=== PATIENT | female | born 1995 | race Caucasian/White ===

== ENCOUNTER 2019-07-11 14:54 | Outpatient (CLI) | payer OTHER ==
--- NOTE | 2019-07-11 15:34 | RAD ---
CERVICAL SPINE 3 VIEWS: Date: 07/11/2019 HISTORY: Neck pain. FINDINGS/IMPRESSION: There is loss of cervical lordosis with mild reversal. No fracture, subluxation, or bony destruction is seen. The prevertebral soft tissues are normal. POS: OFF
== END 2019-07-11 14:55 | disposition home or self-care (01) ==
LOC: RAD-FRANK 14:54
PROVIDERS: ATTEND Internal Medicine
DX: M54.2 Cervicalgia (principal)
CPT/HCPCS: 72040

== ENCOUNTER 2019-09-23 10:23 | Outpatient (CLI) | payer OTHER ==
--- NOTE | 2019-09-23 11:26 | MRI ---
MRI LUMBAR SPINE NONCONTRAST: DATE: 09/23/2019 HISTORY: 24-year-old female with lumbar radiculopathy M 54.16 COMPARISON: None FINDINGS: 5 lumbar-type vertebrae. Vertebral body heights are maintained. Conus medullaris terminates at L1-2. At L4-5 there is disc desiccation, mild discs space narrowing, mild disc bulge, and a superimposed small focal central and bilateral paracentral disc protrusion which indents the ventral aspect of the rachelle sac, abutting bilateral L5 nerve roots. No high-grade central spinal canal stenosis. Or high-grade neural foraminal stenosis at that level. All of the other levels are normal. 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 Otherwise normal bone marrow signal. No high-grade facet DJD. Perivertebral spaces are normal. Alignment is normal. IMPRESSION: 1. Mild degenerative disc disease at L4-5 with mild disc bulge and small central disc herniation. 2. The rest of the levels are normal.
== END 2019-09-23 10:24 | disposition home or self-care (01) ==
LOC: TBSIIMAG 10:23
PROVIDERS: ATTEND Neurological Surgery
DX: M51.16 Intervertebral disc disorders with radiculopathy, lumbar region (principal)
CPT/HCPCS: 72148

== ENCOUNTER 2020-02-14 19:18 | Emergency (ER) | payer OTHER ==
[2020-02-14] MEDS ORDERED: Lorazepam 1 MG TAB ONE (20:04)
--- NOTE | 2020-02-14 20:44 | RAD ---
EXAM: Chest PA and lateral: HISTORY: Dyspnea COMPARISON: None FINDINGS: Heart: Normal cardiac silhouette Aorta: Unremarkable Pulmonary vessels: Normal Costophrenic angles: Costophrenic angles are clear. Lungs: No consolidation or masses. Pneumothorax: No pneumothorax Osseous structures: No osseous abnormalities IMPRESSION: No acute cardiopulmonary process.
--- NOTE | 2020-02-25 10:55 | EKG ---
Test Reason : Blood Pressure : / mmHG Vent. Rate : 083 BPM Atrial Rate : 083 BPM P-R Int : 120 ms QRS Dur : 086 ms QT Int : 398 ms P-R-T Axes : 037 018 006 degrees QTc Int : 467 ms Normal sinus rhythm with sinus arrhythmia Normal ECG Confirmed by PÉREZ MITTAL DO ([id number]), copy editor SILVERIO FARFAN ([id number] on 02/25/2020 10:55:04 AM Referred By: Confirmed By:PÉREZ MITTAL DO
== END 2020-02-14 21:12 | disposition home or self-care (01) ==
LOC: ERS 19:18
DX: R00.0 Tachycardia, unspecified (principal); R06.00 Dyspnea, unspecified; F41.9 Anxiety disorder, unspecified; F17.210 Nicotine dependence, cigarettes, uncomplicated; Z79.899 Other long term (current) drug therapy
CPT/HCPCS: 71046; 93005

== ENCOUNTER 2021-01-16 03:58 | Emergency (ER) | payer OTHER | END 2021-01-16 05:14 | disposition left against medical advice (07) | LOC: ERS 03:58 | DX: Z53.21 Procedure and treatment not carried out due to patient leaving prior to being seen by health care provider (principal) ==

== ENCOUNTER 2021-01-18 18:03 | Emergency (ER) | payer OTHER | END 2021-01-18 19:25 | disposition home or self-care (01) | LOC: ERS 18:03 | DX: O98.511 Other viral diseases complicating pregnancy, first trimester (principal); U07.1 COVID-19; Z3A.12 12 weeks gestation of pregnancy | CPT/HCPCS: 99283 ==

== ENCOUNTER 2022-03-02 12:42 | Emergency (ER) | payer OTHER ==
[2022-03-02] MEDS ORDERED: Ketorolac Tromethamine 30 MG/ML VIAL ONE (13:10)
[2022-03-02] MEDS ORDERED: Diazepam 5 MG TAB ONE (13:12)
== END 2022-03-02 13:24 | disposition home or self-care (01) ==
LOC: ERS 12:42
DX: M43.6 Torticollis (principal); F17.210 Nicotine dependence, cigarettes, uncomplicated
CPT/HCPCS: 96372; 99283; J1885

== ENCOUNTER 2022-03-09 00:26 | Emergency (ER) | payer OTHER ==
[2022-03-09] MEDS ORDERED: Ketorolac Tromethamine 30 MG/ML VIAL ONE (01:22)
[2022-03-09] MEDS ORDERED: Ondansetron PF 4 MG/2 ML Vial ONE (01:22)
[2022-03-09 01:44] LABS: BHCG - Serum Negative (NEGATIVE); Pregs Control Background? CLEAR/WHITE (CLR/WHITE); Pregs Control Bar Appear? YES (CONTROL BAR)
[2022-03-09] MEDS ORDERED: Morphine 4 MG/ML VIAL ONE (03:03)
[2022-03-09] MEDS ORDERED: Ondansetron ODT 4 MG TAB ONE (03:03)
== END 2022-03-09 03:58 | disposition home or self-care (01) ==
LOC: ERS 00:26
DX: S90.01XA Contusion of right ankle, initial encounter (principal); F17.210 Nicotine dependence, cigarettes, uncomplicated; Y04.0XXA Assault by unarmed brawl or fight, initial encounter
CPT/HCPCS: 36415; 70450; 72125; 84703; 96374; 96375; J1885; J2270; J2405; Q0162

== ENCOUNTER 2022-07-18 10:58 | Outpatient (CLI) | payer OTHER | END 2022-07-18 10:59 | disposition home or self-care (01) | LOC: TBSIIMAG 10:58 | PROVIDERS: ATTEND Neurological Surgery | DX: M50.122 Cervical disc disorder at C5-C6 level with radiculopathy (principal); M48.02 Spinal stenosis, cervical region | CPT/HCPCS: 72141 ==

== ENCOUNTER 2024-01-28 10:43 | Outpatient (CLI) | payer MEDICAID | END 2024-01-28 10:44 | disposition home or self-care (01) | LOC: BICULT 10:43 | PROVIDERS: ATTEND Physician Assistant | DX: N63.21 Unspecified lump in the left breast, upper outer quadrant (principal) ==